=== PATIENT | female | born 1985 | race Caucasian/White ===

== ENCOUNTER → 2018-10-25 | Outpatient (CLI) | payer BC ==
--- NOTE | 2018-10-25 16:03 | PCVCIMAG ---
APPROVED REPORT Study performed: 10/25/2018 14:51:39 EXAM: Comprehensive 2D, Doppler, and color-flow Echocardiogram Patient Location: Echo lab Status: routine BSA: 1.91 HR: 61 bpmBP: 144/82 mmHg Rhythm: NSR Other Information Study Quality: Adequate Indications Palpitations Chest Pain PSVT, PVCs 2D Dimensions IVSd: 7.18 (7-11mm) LVDd: 46.69 mm PWd: 6.38 (7-11mm)Ascending Ao: 26.27 (22-36mm) LVDs: 33.05 (25-40mm) Left Atrium: 32.47 (27-40mm) Aortic Root: 26.44 mm LV Single Plane 4CH: 53.97 % LV Single Plane 2CH: 63.58 % Biplane EF: 59.1 % Volumes Left Atrial Volume (Systole) Single Plane 4CH: 44.85 mLSingle Plane 2CH: 43.84 mL LA ESV Index: 24.00 mL/m2 Aortic Valve AoV Peak .: 1.45 m/s AO Peak Gr.: 8.41 mmHgLVOT Max P.37 mmHg LVOT Max V: 0.92 m/s Mitral Valve E/A Ratio: 2.1 MV Decel. Time: 245.90 ms MV E Max .: 0.79 m/s MV A .: 0.37 m/s IVRT: 93.43 ms Pulmonary Valve PV Peak .: 1.06 m/sPV Peak Gr.: 4.47 mmHg Pulmonary Vein P Vein S: 0.34 m/sP Vein A: 0.34 m/s P Vein D: 0.55 m/sP Vein A Dur.: 148.8 msec P Vein S/D Ratio: 0.62 Tricuspid Valve TR Peak .: 2.66 m/s TR Peak Gr.: 28.21 mmHg TV Vmax: 0.58 m/s Left Ventricle The left ventricle is normal size. There is normal LV segmental wall motion. There is normal left ventricular wall thickness. Left ventricular systolic function is normal. The left ventricular ejection fraction is within the normal range. LVEF is 55-60%. The left ventricular diastolic function is normal. Right Ventricle The right ventricle is normal size. The right ventricular systolic function is normal. Atria The left atrium size is normal. The right atrium size is normal. Aortic Valve The aortic valve is normal in structure. No aortic regurgitation is present. There is no aortic valvular stenosis. Mitral Valve The mitral valve is normal in structure. Trace mitral regurgitation. No evidence of mitral valve stenosis. Tricuspid Valve The tricuspid valve is normal in structure. Trace tricuspid regurgitation with PAP of 33 mmHg. Pulmonic Valve The pulmonary valve is normal in structure. Trace pulmonic regurgitation. Great Vessels The aortic root is normal in size. IVC is normal in size and collapses >50% with inspiration. Pericardium There is no pericardial effusion. There is no pleural effusion. <Conclusion> The left ventricle is normal size. There is normal left ventricular wall thickness. Left ventricular systolic function is normal. The left ventricular diastolic function is normal. The right ventricle is normal size. The left atrium size is normal. The right atrium size is normal. The aortic valve is normal in structure. Trace mitral regurgitation. Trace tricuspid regurgitation with PAP of 33 mmHg.
--- NOTE | 2018-10-25 16:45 | PCVCIMAG ---
APPROVED REPORT Patient Location: Echo lab Room #: Stress Nurse: Tatiana Machuca RN Treadmill Stress Test Indications- chest pain, palpitations, hx SVT, PVCs The patient exercised according to the DEANGELO protocol for 9:43 mins; achieving a work level of 12.4 METS. The resting heart rate of 70 bpm ciara to a maximum heart rate of 153 bpm. This value represent 80% of the maximal, age-predicted heart rate. The resting blood pressure of 114/82 mmHg, ciara to a maximum blood pressure of 158/80 mmHg. The exercise test was stopped due to fatigue, knee pain, dyspnea, and chest pressure. Some chest pain before and during testing. Conclusion 1. Clinical response, nonischemic. 2. Stress ECG response, nonischemic. 3. Suboptimal study due to target heart rate of 85% not achieved.
== END | disposition home or self-care (01) ==
LOC: PCVCIMAG 15:01
PROVIDERS: ATTEND Internal Medicine Cardiovascular Disease
DX: I49.3 Ventricular premature depolarization (principal); I47.1 Supraventricular tachycardia; R00.2 Palpitations; R07.9 Chest pain, unspecified
CPT/HCPCS: 93017; 93306